=== PATIENT | female | born 2000 | race Caucasian/White ===

== ENCOUNTER 2022-07-19 07:41 | Emergency (ER) | payer OTHER ==
[2022-07-19] MEDS ORDERED: Ondansetron 4 MG Tab.DIS PO ONE (08:12)
[2022-07-19 08:50] LABS: ESTIMATED GFR 82 mL/min (>60)
[2022-07-19] MEDS ORDERED: Ketorolac 30 MG/ML SDV IM ONE (09:47)
== END 2022-07-19 10:41 | disposition home or self-care (01) ==
LOC: JP.ED 07:41
DX: R51.9 Headache, unspecified (principal); R11.2 Nausea with vomiting, unspecified; Z88.0 Allergy status to penicillin
CPT/HCPCS: 36415; 80053; 81001; 81025; 83605; 83690; 85025; 85379; 93005; 96372; 99284; J1885; Q0162

== ENCOUNTER 2022-09-16 05:21 | Emergency (ER) | payer OTHER ==
[2022-09-16 06:18] LABS: CORONAVIRUS COVID-19 NAA POSITIVE (NEGATIVE)
== END 2022-09-16 06:38 | disposition home or self-care (01) ==
LOC: JP.ED 05:21
DX: U07.1 COVID-19 (principal); Z88.0 Allergy status to penicillin; Z79.899 Other long term (current) drug therapy
CPT/HCPCS: 0241U; 71046; 99283

== ENCOUNTER 2023-03-11 12:53 | Emergency (ER) | payer OTHER ==
[2023-03-11] MEDS ORDERED: droPERidol 5 MG/2 ML SDV IVPUSH ONE (13:15)
[2023-03-11] MEDS ORDERED: Sodium Chloride 0.9% 500 ML IV ONE (13:16)
[2023-03-11] MEDS ORDERED: Acetaminophen 325 MG Tab PO ONE (13:16)
== END 2023-03-11 14:51 | disposition home or self-care (01) ==
LOC: JP.ED 12:53
DX: R51.9 Headache, unspecified (principal); Z88.0 Allergy status to penicillin; Z79.82 Long term (current) use of aspirin; Z79.899 Other long term (current) drug therapy
CPT/HCPCS: 96374; 99284; A9270; J1790; J7040